=== PATIENT | male | born 1955 | race Caucasian/White ===

== ENCOUNTER → 2019-02-14 | Outpatient (CLI) | payer BC ==
--- NOTE | 2019-02-14 16:09 | PCVCIMAG ---
APPROVED REPORT Study performed: 02/14/2019 14:06:27 EXAM: Comprehensive 2D, Doppler, and color-flow Echocardiogram Patient Location: Echo lab Room #: 2Status: routine BSA: 2.11 HR: 74 bpmBP: 124/78 mmHg Rhythm: NSR Other Information Study Quality: Adequate Risk Factors: Cardiac Risk Factors: HTN Indications Dyspnea Syncope Hypertension/HDD 2D Dimensions IVSd: 10.92 (7-11mm)LVOT Diam: 24.63 (18-24mm) LVDd: 52.51 mm PWd: 9.31 (7-11mm)Ascending Ao: 29.13 (22-36mm) LVDs: 33.52 (25-40mm) Left Atrium: 30.87 (27-40mm) Aortic Root: 26.30 mm LV Single Plane 4CH: 60.60 % LV Single Plane 2CH: 63.27 % Biplane EF: 61.0 % Volumes Left Atrial Volume (Systole) Single Plane 4CH: 38.78 mLSingle Plane 2CH: 41.33 mL Biplane LA Volume: 43.00 mLLA ESV Index: 20.00 mL/m2 Aortic Valve AoV Peak Massimo.: 1.19 m/s AO Peak Gr.: 5.79 mmHgLVOT Max P.31 mmHg LVOT Max V: 1.05 m/s KEITH Vmax: 4.21 cm2 Mitral Valve E/A Ratio: 1.1 MV Decel. Time: 286.48 ms MV E Max Massimo.: 0.56 m/s MV A Massimo.: 0.53 m/s IVRT: 134.95 ms TDI E/Lateral E': 14.00E/Medial E': 4.67 Medial E' Massimo.: 0.12 m/s Lateral E' Massimo.: 0.04 m/s Pulmonary Valve PV Peak Massimo.: 1.07 m/sPV Peak Gr.: 4.56 mmHg Pulmonary Vein P Vein S: 0.50 m/sP Vein A: 0.93 m/s P Vein D: 0.36 m/sP Vein A Dur.: 100.3 msec P Vein S/D Ratio: 1.39 Tricuspid Valve TR Peak Massimo.: 2.48 m/s TR Peak Gr.: 24.66 mmHg TV Vmax: 0.53 m/sPA Pressure: 32.00 mmHg Left Ventricle The left ventricle is normal size. There is normal LV segmental wall motion. There is normal left ventricular wall thickness. Left ventricular systolic function is normal. The left ventricular ejection fraction is within the normal range. LVEF is 60-65%. Right Ventricle The right ventricle is normal size. The right ventricular systolic function is normal. Atria The left atrium size is normal. The right atrium size is normal. Aortic Valve Aortic valve is trileaflet. Minimal aortic valve sclerosis. No aortic regurgitation is present. There is no aortic valvular stenosis. Mitral Valve The mitral valve is normal in structure. There is no mitral valve regurgitation noted. No evidence of mitral valve stenosis. Tricuspid Valve The tricuspid valve is normal in structure. Trace tricuspid regurgitation. Pulmonic Valve The pulmonary valve is normal in structure. There is no pulmonic valvular regurgitation. Great Vessels The aortic root is normal in size. The ascending aorta is normal in size. Aortic arch is normal in caliber. IVC is normal in size and collapses >50% with inspiration. Pericardium There is no pericardial effusion. There is no pleural effusion. <Conclusion> The left ventricle is normal size. There is normal left ventricular wall thickness. Left ventricular systolic function is normal. The right ventricle is normal size. The left atrium size is normal. There is no aortic valvular stenosis. There is no mitral valve regurgitation noted. Trace tricuspid regurgitation.
--- NOTE | 2019-02-14 16:11 | PCVCIMAG ---
APPROVED REPORT Study performed: 02/14/2019 14:54:38 Exam: Stress Echocardiogram Indication: Dyspnea , Dizziness, Syncope Patient Location: Echo lab Stress Nurse: Nan Willingham RN Room #: 2 Status: routine Ht: 5 ft 10 in HR: 68 bpm BP: 124/78 mmHg Rhythm: NSR Medical History Medical History: HTN Cardiac Risk Factors: HTN Previous Cardiac Procedures: none Pretest Chest Pain Characteristics: No chest pain Exercise History: Sedentary Procedure The patient underwent an Exercise Stress Test using the Mihai Protocol. Blood pressure, heart rate, and EKG were monitored. An Echocardiogram was performed by tax examining technician in four stages in quad fashion. At peak stress, four selected images were obtained and placed side by side with resting images for comparison. Stress Test Details Stress Test: Exercise stress testing was performed using a Mihai protocol. HR Resting HR: 86 bpmMax Heart Rate (APMHR): 158 bpm Max HR Achieved: 141 bpmTarget HR (85% APMHR): 134 bpm % of APMHR: 89 Recovery HR: 103 bpm HR response to stress: Normal HR response to stress BP Resting BP: 124/78 mmHg Max BP: 162/90 mmHg Recovery BP: 142/84 mmHg BP response to stress: Normal blood pressure response to stress. ECG Resting ECG: Sinus Rhythm Stress ECG: Sinus Rhythm ST Change: Non-ischemic Arrhythmia: rare PACs, PVCs Recovery ECG: Sinus Rhythm Recovery ST Change: Non-ischemic Recovery ST Deviation: -0.80 mm Recovery Arrhythmia: None Clinical Reason for Termination: Maximal effort, Dyspnea Stress Symptoms: Dyspnea Exercise duration: 6 min 00 sec Highest Stage Achieved: Stage 2: 2.5 mph at 12% grade. Exercise capacity: 7.2 METs Overall Exercise Capacity for Age: Poor Scale: Sedentary Angina Score: None No complications. Patient had cough post exercise with a "tickle" in his throat- history of asthma. Improved but still coughing when he went up for office visit. Pre-Stress Echo The resting Echocardiogram showed normal left ventricular contractility with an estimated Ejection Fraction of about 55-60%. The resting echocardiogram demonstrated normal wall motion in all wall segments. Normal wall motion in all segments on baseline images. Post-Stress Echo The stress Echocardiogram showed normal left ventricular contractility with an estimated Ejection Fraction of about 65-70%. Compared to rest, there were no stress-induced wall motion abnormalities. Normal augmentation of wall motion in all segments on post stress images. Clinical No clinical or ECG evidence for ischemia. Conclusion Clinical Response: Non-ischemic Exercise Capacity: Below Average Stress ECG Response: Non-ischemic Stress Echo Images: Non-ischemic No clinical, EKG or echocardiographic evidence for ischemia. No prior study available for comparison. <Conclusion> No clinical, EKG or echocardiographic evidence for ischemia.
== END | disposition home or self-care (01) ==
LOC: PCVCIMAG 13:58
PROVIDERS: ATTEND Internal Medicine Cardiovascular Disease
DX: I35.8 Other nonrheumatic aortic valve disorders (principal); E78.00 Pure hypercholesterolemia, unspecified; I10 Essential (primary) hypertension; J45.909 Unspecified asthma, uncomplicated; F12.90 Cannabis use, unspecified, uncomplicated; Z79.899 Other long term (current) drug therapy; Z95.1 Presence of aortocoronary bypass graft
CPT/HCPCS: 93306; 93351